=== PATIENT | female | born 1985 | race Caucasian/White ===

== ENCOUNTER 2023-02-14 13:21 | Emergency (ER) | payer OTHER ==
[2023-02-14 14:09] VITALS: BP 119/79; PULSE 73; RESP 20; TEMP 98.2
[2023-02-14] MEDS ORDERED: SODIUM CHLORIDE 0.9% 1,000 ML IV STA (14:44)
[2023-02-14] MEDS ORDERED: ONDANSETRON 4 MG/2 ML VIAL IVP STA (14:44)
[2023-02-14] MEDS ORDERED: KETOROLAC 15 MG/ML 1 ML VIAL IVP STA (14:44)
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
[2023-02-14 15:24] LABS: Basophils % (A) 0 %; Eosinophils # (A) 0.3 k/uL (0-0.7); Eosinophils % (A) 3 %; HCT 47.6 % (34.0-46.0); HGB 15.6 gm/dL (11.4-16.0); Lymphocytes # (A) 2.4 k/uL (1.0-4.8); Lymphocytes % (A) 32 %; MCH 30.5 pg (25.0-35.0); MCHC 32.9 g/dL (31.0-37.0); MCV 92.9 fL (80.0-100.0); Mean Platelet Volume 8.1; Monocytes # (A) 0.3 k/uL (0-1.0); Monocytes % (A) 4 %; Neutrophils # (A) 4.4 k/uL (1.3-7.7); Neutrophils % (A) 59 %; Platelet Count 225 k/uL (150-450); RBC 5.12 m/uL (3.80-5.40); RDW 12.5 % (11.5-15.5); WBC 7.6 k/uL (3.8-10.6)
[2023-02-14 15:36] LABS: ALT 27 U/L (4-34); African American GFR (CKD) >90 (>60 ml/min/1.73 sqM); Amylase 41 U/L (30-110); Anion Gap 10 mmol/L; Blood Urea Nitrogen 13 mg/dL (7-17); Calcium 9.2 mg/dL (8.4-10.2); Carbon Dioxide 25 mmol/L (22-30); Chloride 102 mmol/L (98-107); Glucose 82 mg/dL (74-99); Lipase 83 U/L (23-300); Non-African American GFR(CKD) >90 (>60 ml/min/1.73 sqM); Sodium 137 mmol/L (137-145); Total Bilirubin 0.8 mg/dL (0.2-1.3)
[2023-02-14] MEDS ORDERED: FAMOTIDINE 20 MG/2 ML VIAL IV STA (15:57)
[2023-02-14] MEDS ORDERED: MAG HYDROX/AL HYDROX/SIMETH 30 ML, HYOSCYAMINE ELIXIR 10 ML PO STA ×2 (15:57)
[2023-02-14 16:08] LABS: Potassium 4.6 mmol/L (3.5-5.1)
[2023-02-14 16:09] LABS: AST 31 U/L (14-36); Albumin 4.2 g/dL (3.5-5.0); Alkaline Phosphatase 72 U/L (38-126); Total Protein 7.7 g/dL (6.3-8.2)
[2023-02-14 16:25] LABS: Appearance,Urine Clear (Clear); Bilirubin,Urine Negative (Negative); Blood,Urine Negative (Negative); Color,Urine Yellow; Glucose,Urine (UA) Negative (Negative); Ketones,Urine Negative (Negative); Leukocyte Esterase,Urine Negative (Negative); Nitrite,Urine Negative (Negative); Protein,Urine Trace (Negative); Urobilinogen,Urine <2.0 mg/dL (<2.0)
[2023-02-14] MEDS ORDERED: ONDANSETRON 4 MG ODT STARTER PACK 2 TAB BTL PO STA (16:39)
== END 2023-02-14 16:51 | disposition home or self-care (01) ==
LOC: EC 13:21
DX: K52.9 Noninfective gastroenteritis and colitis, unspecified (principal); I10 Essential (primary) hypertension; Z20.822 Contact with and (suspected) exposure to COVID-19; Z88.0 Allergy status to penicillin
CPT/HCPCS: 36415; 80053; 82150; 83605; 83690; 85025; 81003; 81025; 87636; 99284; 96374; 96375 ×2; 96361; J2405; J3490; J1885; S0119

== ENCOUNTER 2024-09-07 17:27 | Emergency (ER) | payer BC, OTHER ==
[2024-09-07 18:01] VITALS: TEMP 98.1
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
[2024-09-07] MEDS: SODIUM CHLORIDE 0.9% 1,000 ML IV ONE (18:20)
[2024-09-07] MEDS: PROCHLORPERAZINE INJ 10 MG/2 ML VIAL IVP STA (18:20)
[2024-09-07] MEDS: HYDROmorphone 1 MG/ML 1 ML SYRINGE IVP STA (18:22)
[2024-09-07] MEDS: diphenhydrAMINE 50 MG/ML 1 ML VIAL IVP STA (18:25)
[2024-09-07] MEDS: FAMOTIDINE 20 MG/2 ML VIAL IV STA (18:27)
[2024-09-07] MEDS: methylPREDNISolone SOD SUCCI 125 MG/2 ML VIAL IV STA (18:34)
[2024-09-07 18:54] VITALS: RESP 20
[2024-09-07 18:55] LABS: Basophils # (A) 0.05 10*3/uL (0.00-0.10); Basophils % (A) 0.6 %; Eosinophils # (A) 0.03 10*3/uL (0.04-0.35); Eosinophils % (A) 0.4 %; HCT 43.1 % (37.2-46.3); HGB 14.2 g/dL (12.0-15.0); Lymphocytes # (A) 1.34 10*3/uL (0.90-5.00); Lymphocytes % (A) 15.9 %; MCH 30.8 pg (27.0-32.0); MCHC 32.9 g/dL (32.0-37.0); MCV 93.5 fL (80.0-97.0); Monocytes # (A) 0.46 10*3/uL (0.20-1.00); Monocytes % (A) 5.5 %; Neutrophils # (A) 6.50 10*3/uL (1.80-7.70); Neutrophils % (A) 77.0 %; Platelet Count 233 10*3/uL (140-440); RBC 4.61 10*6/uL (4.10-5.20); RDW 12.3 % (11.5-14.5); WBC 8.43 10*3/uL (4.50-10.00)
[2024-09-07 19:01] LABS: Bilirubin,Urine Negative (Negative); Blood,Urine Large (Negative); Color,Urine Yellow; Glucose,Urine (UA) Negative (Negative); Ketones,Urine Negative (Negative); Leukocyte Esterase,Urine Negative (Negative); Mucus,Urine Occasional /hpf; Nitrite,Urine Negative (Negative); PH, Urine 7.5 (5.0-8.0); Protein,Urine Trace (Negative); RBC,Urine >182 /hpf (0-5); Specific Gravity,Urine 1.022 (1.001-1.035); Squamous Epithelial Cell,Urine 2 /hpf (0-4); Urobilinogen,Urine <2.0 mg/dL (<2.0); WBC,Urine 2 /hpf (0-5)
[2024-09-07 19:04] LABS: ALT 28 U/L (4-34); AST 25 U/L (14-36); African American GFR (CKD) >90 (>60 ml/min/1.73 sqM); Albumin 4.5 g/dL (3.5-5.0); Alkaline Phosphatase 88 U/L (38-126); Amylase 42 U/L (30-110); Anion Gap 11 mmol/L; Blood Urea Nitrogen 11 mg/dL (7-17); Calcium 8.9 mg/dL (8.4-10.2); Carbon Dioxide 26 mmol/L (22-30); Chloride 104 mmol/L (98-107); Glucose 152 mg/dL (74-99); Lipase 67 U/L (23-300); Non-African American GFR(CKD) >90 (>60 ml/min/1.73 sqM); Potassium 4.2 mmol/L (3.5-5.1); Sodium 141 mmol/L (137-145); Total Protein 7.6 g/dL (6.3-8.2)
--- NOTE | 2024-09-07 19:38 | CT ---
EXAMINATION TYPE: CT abdomen pelvis w con CT DLP: 5062 mGycm, Automated exposure control for dose reduction was used. DATE OF EXAM: 09/07/2024 7:20 PM COMPARISON: None CLINICAL INDICATION:Female, 38 years old with history of RLQ pain; rlq pain, hx of appendectomy TECHNIQUE: Standard CT of the abdomen and pelvis following the administration of 100 cc of Isovue 3 00 IV contrast material. Coronal and sagittal reformats were performed. FINDINGS: LOWER CHEST: Minimal posterior dependent subsegmental atelectasis is noted. Mild cardiomegaly. No per icardial effusion. ABDOMEN LIVER: Enlarged measuring 22.4 cm in CC dimension. No focal lesion. GALLBLADDER AND BILE DUCTS: Unremarkable. PANCREAS: Unremarkable. SPLEEN: Mildly enlarged measuring 14.5 cm in CC dimension. ADRENAL GLANDS: Unremarkable. KIDNEYS AND URETERS: Mild right hydroureteronephrosis with an obstructing 4 mm calculus at the ureter al vesicle junction. There is mild periureteral and perinephric fat stranding. Slight delayed enhance ment of the right kidney compared to the left. No left hydronephrosis or renal calculi. No other righ t renal calculi visualized. Contrast is demonstrated only within the left collecting system and proxi mal ureter on the delayed phase. PELVIS BLADDER: Incompletely distended but grossly unremarkable. REPRODUCTIVE: Unremarkable. ABDOMEN & PELVIS STOMACH AND BOWEL: Stomach and duodenum are unremarkable. No focal bowel wall thickening or surroundi ng inflammatory changes. The appendix is surgically absent. No evidence of bowel obstruction. PERITONEUM: No evidence of pneumoperitoneum or free fluid. VASCULATURE: No evidence of aortic aneurysm. MUSCULOSKELETAL: No acute osseous abnormalities. Pseudoarticulation of the right L5 transverse proces s with the sacrum. Left L5 pars defect. No anterolisthesis. LYMPH NODES: No evidence for lymphadenopathy. SOFT TISSUE/ABDOMINAL WALL: Unremarkable IMPRESSION: 1. Mild right hydroureteronephrosis with an obstructing 4 mm calculus at the ureterovesical junction . 2. Mild hepatosplenomegaly. [facility], , 09/07/2024 7:36 PM
[2024-09-07] MEDS: ACET/COD 300 MG/30 MG STARTER PACK 6 TAB BTL PO STA (20:01)
[2024-09-07] MEDS: ONDANSETRON 4 MG ODT STARTER PACK 2 TAB BTL PO STA (20:02)
[2024-09-07] MEDS: TAMSULOSIN 0.4 MG CAP.ER.24H PO STA (20:02)
[2024-09-07 20:06] VITALS: BP 151/102; PULSE 106
== END 2024-09-07 20:11 | disposition home or self-care (01) ==
LOC: EC 17:27
DX: N13.2 Hydronephrosis with renal and ureteral calculous obstruction (principal); Z91.041 Radiographic dye allergy status; Z88.0 Allergy status to penicillin
CPT/HCPCS: 36415; 80053; 82150; 83605; 83690; 85025; 81001; 81025; 74177; 99285; 96374; 96375; 96361; J1200; J0780; J1171; S0119; J2919; J1308